=== PATIENT | female | born 1935 | race Caucasian/White ===

== ENCOUNTER 2024-07-24 12:04 | Emergency (ER) | payer OTHER ==
[2024-07-24 12:11] VITALS: BP 137/83; PULSE 88; RESP 18; TEMP 98.1; BMI 22.8
[2024-07-24] MEDS ORDERED: KETOROLAC TROMETHAMINE 15 MG/ML VIAL ONE (12:51)
[2024-07-24] MEDS: KETOROLAC TROMETHAMINE 30 MG/1 ML VIAL IM ONE (12:52)
[2024-07-24] MEDS ORDERED: METHOCARBAMOL 500 MG TABLET ONE (13:47)
[2024-07-24] MEDS: METHOCARBAMOL 500 MG TABLET PO ONE (13:48)
[2024-07-24] MEDS ORDERED: diazePAM 5 MG TABLET ONE (14:45)
[2024-07-24] MEDS: diazePAM 5 MG TABLET PO ONE (14:45)
== END 2024-07-24 15:16 | disposition home or self-care (01) ==
LOC: JERFT 12:04
PROC: 3E0233Z Introduction of Anti-inflammatory into Muscle, Percutaneous Approach (ICD-10-PCS; principal; 2024-07-24)
DX: M25.552 Pain in left hip (principal); M79.605 Pain in left leg; G89.29 Other chronic pain
CPT/HCPCS: 73502-TC-LT-FY; 99284-25

== ENCOUNTER 2024-08-24 05:57 | Day surgery (SDC) | payer OTHER ==
[2024-08-21 16:16] VITALS: BMI 25.9
[2024-08-24] MEDS ORDERED: TRIAMCINOLONE ACET 40MG/1ML VIAL ONE (07:59)
[2024-08-24] MEDS ORDERED: LIDOCAINE HCL/PF 1% SDV 5ML VIAL ONE (07:59)
[2024-08-24] MEDS ORDERED: BUPIVACAINE HCL/PF 0.5% (5MG/ML) 10 ML VIAL ONE (09:35)
[2024-08-24] MEDS: IOHEXOL 180 MG/1 ML ML IJ ONE (16:14)
[2024-08-24] MEDS: LIDOCAINE HCL 1% PRESERVATIVE FREE - 30ML VIAL IJ ONE (16:15)
[2024-08-24] MEDS: TRIAMCINOLONE ACET 40MG/1ML VIAL IM ONE (16:16)
[2024-08-24] MEDS: BUPIVACAINE HCL/PF 0.5% (5 MG/ML) 30 ML VIAL IJ ONE (16:16)
[2024-08-24 16:38] VITALS: BP 147/68; PULSE 65; RESP 18; TEMP 97.7
== END 2024-08-24 18:17 | disposition home or self-care (01) ==
LOC: JASU-SURG 05:57
PROVIDERS: ATTEND Pain Medicine Pain Medicine
PROC: 3E0U3BZ Introduction of Anesthetic Agent into Joints, Percutaneous Approach (ICD-10-PCS; 2024-08-24)
PROC: 3E0U33Z Introduction of Anti-inflammatory into Joints, Percutaneous Approach (ICD-10-PCS; principal; 2024-08-24 15:00)
DX: M25.552 Pain in left hip (principal)
CPT/HCPCS: 76000-TC-FY

== ENCOUNTER 2024-10-19 07:27 | Day surgery (SDC) | payer OTHER ==
[2024-10-17 15:32] VITALS: BMI 22.8
[2024-10-19 12:55] VITALS: RESP 18
[2024-10-19] MEDS: LIDOCAINE HCL 1% PRESERVATIVE FREE - 30ML VIAL IJ ONE (13:53)
[2024-10-19] MEDS: DEXAMETHASONE SOD PHOSPHATE 10 MG/1 ML VIAL IVPUSH ONE (13:54)
[2024-10-19] MEDS: IOHEXOL 180 MG/1 ML ML IJ ONE (13:54)
[2024-10-19 14:34] VITALS: BP 144/65; PULSE 64; TEMP 97.1
== END 2024-10-19 15:05 | disposition home or self-care (01) ==
LOC: JASU-SURG 07:27
PROVIDERS: ATTEND Pain Medicine Pain Medicine
PROC: 3E0R3BZ Introduction of Anesthetic Agent into Spinal Canal, Percutaneous Approach (ICD-10-PCS; 2024-10-19)
PROC: 3E0R33Z Introduction of Anti-inflammatory into Spinal Canal, Percutaneous Approach (ICD-10-PCS; principal; 2024-10-19 14:30)
DX: M48.061 Spinal stenosis, lumbar region without neurogenic claudication (principal); M54.51 Vertebrogenic low back pain
CPT/HCPCS: 76000-TC-FY; J1100

== ENCOUNTER 2024-11-16 05:45 | Day surgery (SDC) | payer OTHER ==
[2024-11-16] MEDS ORDERED: ACETAMINOPHEN 500 MG TABLET (FP) PO PRN (08:42)
[2024-11-16 10:52] VITALS: RESP 20
[2024-11-16] MEDS ORDERED: DEXAMETHASONE SOD PHOSPHATE 10 MG/1 ML VIAL ONE (10:55)
[2024-11-16] MEDS: LIDOCAINE HCL 1% PRESERVATIVE FREE - 30ML VIAL IJ ONE (12:43)
[2024-11-16] MEDS: IOHEXOL 180 MG/1 ML ML IJ ONE (12:48)
[2024-11-16] MEDS: DEXAMETHASONE SOD PHOSPHATE 10 MG/1 ML VIAL IM ONE (12:49)
[2024-11-16 13:05] VITALS: BP 128/59; PULSE 68; TEMP 97.5
== END 2024-11-16 13:57 | disposition home or self-care (01) ==
LOC: JASU-SURG 05:45
PROVIDERS: ATTEND Pain Medicine Pain Medicine
PROC: 3E0R3BZ Introduction of Anesthetic Agent into Spinal Canal, Percutaneous Approach (ICD-10-PCS; 2024-11-16)
PROC: 3E0R33Z Introduction of Anti-inflammatory into Spinal Canal, Percutaneous Approach (ICD-10-PCS; principal; 2024-11-16 12:00)
DX: M48.061 Spinal stenosis, lumbar region without neurogenic claudication (principal); M54.16 Radiculopathy, lumbar region
CPT/HCPCS: 76000-TC-FY; J1100

== ENCOUNTER 2024-12-28 06:15 | Day surgery (SDC) | payer OTHER ==
[2024-12-28] MEDS ORDERED: LIDOCAINE HCL/PF 1% SDV 5ML VIAL ONE (07:16)
[2024-12-28] MEDS ORDERED: BUPIVACAINE HCL/PF 0.75% 10 ML VIAL ONE (07:16)
[2024-12-28] MEDS: LIDOCAINE HCL 1% PRESERVATIVE FREE - 30ML VIAL IJ ONE ×4 (08:41→08:46)
[2024-12-28] MEDS: BUPIVACAINE HCL/PF 0.75% 10 ML VIAL NR ONE ×4 (08:41→08:46)
[2024-12-28] MEDS ORDERED: ACETAMINOPHEN 500 MG TABLET (FP) PO PRN (08:55)
[2024-12-28 13:24] VITALS: BP 135/64; PULSE 64; RESP 18; TEMP 97.4
== END 2024-12-28 09:45 | disposition home or self-care (01) ==
LOC: JASU-SURG 06:15
PROVIDERS: ATTEND Pain Medicine Pain Medicine
PROC: 3E0T33Z Introduction of Anti-inflammatory into Peripheral Nerves and Plexi, Percutaneous Approach (ICD-10-PCS; 2024-12-28)
PROC: 3E0T3BZ Introduction of Anesthetic Agent into Peripheral Nerves and Plexi, Percutaneous Approach (ICD-10-PCS; principal; 2024-12-28 08:15)
DX: M47.816 Spondylosis without myelopathy or radiculopathy, lumbar region (principal)
CPT/HCPCS: 76000-TC-FY